=== PATIENT | female | born 1960 | race American Indian/Alaskan Native ===

== ENCOUNTER 2019-06-04 11:06 | Emergency (ER) | payer SELFPAY ==
[2019-06-04 11:13] VITALS: BP 157/88
[2019-06-04] MEDS ORDERED: FAMOTIDINE 20 MG TAB PO ONE (11:21)
[2019-06-04] MEDS ORDERED: CLINDAMYCIN 300 MG CAP PO ONE (11:21)
[2019-06-04] MEDS ORDERED: LORATADINE (NF) 10 MG TAB PO ONE (11:21)
[2019-06-04] MEDS ORDERED: diphenhydrAMINE 25 MG CAP PO ONE ×3 (11:21→11:46)
[2019-06-04] MEDS ORDERED: dexAMETHasone 4 MG/ML VIAL IM ONE (11:21)
[2019-06-04] MEDS ORDERED: dexAMETHasone 20 MG/5 ML VIAL IM ONE (11:21)
--- NOTE | 2019-06-04 11:24 | Event Note ---
ED Screening Note Date of service: 06/04/19 Time: 11:15 ED Screening Note: presents with cellulitis to right upper arm from yellow jacket sting x monday This initial assessment/diagnostic orders/clinical plan/treatment(s) is/are subject to change based on patients health status, clinical progression and re- assessment by fellow clinical providers in the ED. Further treatment and workup at subsequent clinical providers discretion. Patient/guardian urged not to elope from the ED as their condition may be serious if not clinically assessed and managed. Initial orders include:
--- NOTE | 2019-06-04 11:26 | Emergency Department Report ---
ED Rash HPI - HPI Chief Complaint: Extremity Injury, Upper Stated Complaint: RT ARM BEE STING/PAIN/SWELLING Time Seen by Provider: 06/04/19 11:20 Duration: 3 Days Location: Upper Extremities Suspected Cause: Insect Rash Symptoms: Yes Itching, No Facial Swelling, No Tongue/Oral Swelling, No Breathing Difficulties, No Choking Sensation, No Wheezing/Dyspnea, No Peeling, N o Blistering, No Fever, No Lightheaded, No Malaise, No Myalgias Severity: mild Other History: 58 YO COMES TO ER WITH RUE SWELLING P GETTING BIT BY BEE ON MONDAY. SHE HAS TAKEN OTC BENADRYL AT HOME BUT SHE THINKS HER BENADRYL IS OLD AND DID NOT WORK. NO FEVER OR CHILLS. NO EDEMA. FULL ROM. ED Review of Systems ROS: Stated complaint: RT ARM BEE STING/PAIN/SWELLING Other details as noted in HPI Comment: All other systems reviewed and negative ED Past Medical Hx - Past Medical History Previous Medical History?: Yes Hx Hypertension: Yes - Surgical History Past Surgical History?: Yes Additional Surgical History: hysterectomy - Family History Family history: no significant - Social History Smoking Status: Never Smoker Substance Use Type: None - Medications Home Medications: Home Medications Medication Instructions Recorded Confirmed Last Taken Type Cetirizine HCl [ZyrTEC] 10 mg PO DAILY #30 capsule 06/04/19 Unknown Rx diphenhydrAMINE [Benadryl CAP] 25 mg PO Q8HR PRN #20 capsule 06/04/19 Unknown Rx predniSONE [Deltasone] 20 mg PO DAILY #5 tablet 06/04/19 Unknown Rx Rash Exam - Exam General: Vital signs noted. No distress. Alert and acting appropriately. HEENT: No Periorbital Edema, No Conjuctival Injection, No Chemosis, No Perioral Edema, No Tongue Edema, No Uvular Edema, No Compromised Airway, No Drooling Lungs: Yes Good Air Exchange, No Wheezes Heart: Yes Regular Skin: Yes Erythema (POST UPPER ARM- TRICEPT REGION; RED; LOCAL SWELLING. NO ABSCESS. NO OPEN AREA. ), No Urticarial Rash, No Maculopapular Rash, No Morbilliform rash, No Bulla(e), No Excoriations, No Weeping, No Tenderness, No Edema, No Encrustations Other: Positive: Neurologic Normal, Musculoskeletal Normal ED Course Vital Signs 06/04/19 11:12 Temperature 97.9 F Pulse Rate 81 Respiratory 18 Rate Blood Pressure 157/88 [Left] O2 Sat by Pulse 97 Oximetry ED Medical Decision Making - Medical Decision Making FULL ROM DISTAL SENSATION INTACT RAD/ULNAR PULSE PLUS 2 RAPID CAP REFILL NO INFECTION NO ABSCESS ABC INTACT NO WHEEZING OR SOB MEDICATED IN ER DC HOME WITH DC PLAN OF CARE AND PCP FOLLOW UP Vital Signs 06/04/19 11:12 Temperature 97.9 F Pulse Rate 81 Respiratory 18 Rate Blood Pressure 157/88 [Left] O2 Sat by Pulse 97 Oximetry - Differential Diagnosis SIMPLE LOCALIZED REACTION TO INSECT BITE Critical care attestation.: If time is entered above; I have spent that time in minutes in the direct care of this critically ill patient, excluding procedure time. ED Disposition Clinical Impression: Insect bite, Local reaction to bee sting Disposition: DC-01 TO HOME OR SELFCARE Is pt being admited?: No Does the pt Need Aspirin: No Condition: Stable Instructions: Insect Bite or Sting (ED) Additional Instructions: WARM COMPRESSES MOTRIN OR TYLENOL FOR PAIN MED ORDERED TODAY FOLLOW UP WITH PCP IF DRAINAGE, FEVER OR OTHER SIGNS OF INFECTION OCCUR Referrals: DORETHA CARO MD [Staff Physician] - 3-5 Days Time of Disposition: 11:25
== END 2019-06-04 12:00 | disposition home or self-care (01) ==
LOC: ED 11:06
DX: S40.862A Insect bite (nonvenomous) of left upper arm, initial encounter (principal); W57.XXXA Bitten or stung by nonvenomous insect and other nonvenomous arthropods, initial encounter; Y93.89 Activity, other specified; Y92.89 Other specified places as the place of occurrence of the external cause; Y99.8 Other external cause status
CPT/HCPCS: 96372; 99282; J1100